=== PATIENT | male | born 1960 | race Caucasian/White ===

== ENCOUNTER 2017-07-11 08:34 | Day surgery (SDC) | payer OTHER ==
[~2017-07-11] VITALS: Ht 171.4 cm; Wt 99.0 kg
[~2017-07-11 08:34] MED LIST: ASPIR 8181 M1 PO; BUSPAR7.5 MG PO; BUSPIRONE HCL PO; BUSPIRONE HCL15 MG PO; CLARITHROMYCIN500 MG PO; CLINDAMYCIN HC300 MG PO; HYDROCHLOROTHIA25 MG PO; Hydrodiuril,Oretic,E PO; INDOCIN25 MG PO; KENALOG,ARISTOC80 G1 TP; LASIX20 MG PO; LASIX40 MG PO; LEVOTHYROXINE100 MCG PO; LIPITOR40 MG PO; Levothroid,Synthroid PO; Lipitor PO; MEN'S MULTI-VI1 EACH PO; MOBIC7.5 MG PO; NEXIUM40 MG PO; NITROSTAT0.4 MG SL; NORVASC10 M1 PO; PERCOCET 5/31 TABLET PO; RANEXA500 MG PO; SINGULAIR10 MG PO; SYNTHROID75 MCG PO; VENTOLIN HFA18 GM IH; ZANTAC75 M1 PO; ZESTRIL,PRINIVI10 M1 PO; ZESTRIL,PRINIVI10 MG PO; ZESTRIL40 MG PO; ZETIA10 MG PO
[2017-07-11] MEDS ORDERED: PREDNISONE20 MG PO (09:14)
[2017-07-11] MEDS ORDERED: BENADRYL25 MG PO (09:15)
== END 2017-07-11 16:13 | disposition home or self-care (01) ==
LOC: CATH 08:34
DX: I25.10 Atherosclerotic heart disease of native coronary artery without angina pectoris (principal); T82.855A Stenosis of coronary artery stent, initial encounter; I25.84 Coronary atherosclerosis due to calcified coronary lesion; Z91.041 Radiographic dye allergy status; I10 Essential (primary) hypertension; E78.5 Hyperlipidemia, unspecified; K21.9 Gastro-esophageal reflux disease without esophagitis; G47.30 Sleep apnea, unspecified; I65.23 Occlusion and stenosis of bilateral carotid arteries
CPT/HCPCS: C1769; C1887; J0153; J0583; J1200; J1644; J2250; J2930; J3010; J7040; S0028